=== PATIENT | female | born 1955 | race American Indian/Alaskan Native ===

== ENCOUNTER 2016-12-31 06:35 | Day surgery (SDC) | payer BC ==
--- NOTE | 2016-12-30 21:09 | History and Physical Report ---
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 Past History Past Medical History: diabetes, hypertension Medications and Allergies Allergies Allergy/AdvReac Type Severity Reaction Status Date / Time No Known Allergies Allergy Verified 02/15/16 19:28 Home Medications Medication Instructions Recorded Confirmed Last Taken Type Amlodipine Besylate [Amlodipine 1 tab PO DAILY 12/24/16 12/24/16 Unknown History Besylate] Atenolol/Chlorthalidone 1 tab PO DAILY 12/24/16 12/24/16 Unknown History [Atenolol-Chlorthalidone 50-25] Irbesartan [Irbesartan] 1 tab PO DAILY 12/24/16 12/24/16 Unknown History Metformin HCl [Metformin HCl] 1 tab PO DAILY 12/24/16 12/24/16 Unknown History Potassium Chloride [Klor-Con 10] 10 meq PO DAILY 12/24/16 12/24/16 Unknown History Pravastatin Sodium [Pravastatin 1 tab PO DAILY 12/24/16 12/24/16 Unknown History Sodium] Active Meds: Active Medications Famotidine (Pepcid) 20 mg PO PREOP NR Stop: 12/31/16 23:59 Cefazolin Sodium (Ancef/Sterile Water 2 Gm/20 Ml) 2 gm in 20 mls @ 80 mls/hr IV PREOP NR PRN Reason: Protocol Stop: 12/31/16 23:00 Sodium Chloride (Nacl 0.9% 1000 Ml) 1,000 mls @ 75 mls/hr IV DIRECT LIAS Midazolam HCl (Versed) 2 mg IV PREOP NR Stop: 12/31/16 23:59 Review of Systems All systems: negative Exam - Extremities Extremities: abnormal (Left thumb with a palpable nodule over the volar aspect of the MCP joint, from cystic with limited mobility. Active triggering of the flexor tendon at the A1 timothy, MCP joint left thumb. Fingertip sensations are intact. Tinnel sign, Phalen's test are negative.) Assessment and Plan - Patient Problems (1) Trigger thumb Status: Acute Qualifiers: Laterality: left Qualified Code(s): M65.312 - Trigger thumb, left thumb Plan to address problem: plan tenotomy, release of triggering (2) Ganglion, finger joint of left hand Status: Acute Plan to address problem: intraligamentous ganglion or aspect of the MCP joint left thumb, and excision with tenolysis
[~2016-12-31 06:35] MED LIST: ANCEF/STERILE WATER 2 GM/20 ML 2 GM/20 ML SYRINGE IV NR; NACL 0.9% 1000 ML 1,000 ML IV SCH; NEOSPORIN GU IR ONE; PEPCID PO NR; VERSED IV NR
[2016-12-31] MEDS ORDERED: NACL BACTERIOSTATIC INFILTRATI ONE (06:48)
--- NOTE | 2016-12-31 06:58 | Anesthesia Consultation ---
Anesthesia Consult and Med Hx - Airway Anesthetic Teeth Evaluation: Good ROM Head & Neck: Adequate Mental/Hyoid Distance: Adequate Mallampati Class: Class I Intubation Access Assessment: Good - Pulmonary Exam CTA: Yes - Cardiac Exam Cardiac Exam: RRR - Pre-Operative Health Status ASA Pre-Surgery Classification: ASA2 Proposed Anesthetic Plan: General - Pulmonary Hx Smoking: No SOB: No Hx Sleep Apnea: Yes - Cardiovascular System Hx Hypertension: Yes (>30 YRS) - Central Nervous System Hx Psychiatric Problems: No - Gastrointestinal Hx Ulcer: Yes (ASPIRIN CAUSED BLEEDING ULCER 2006) - Hematic Hx Anemia: Yes (2007 RESOLVED) - Other Systems Hx Alcohol Use: Yes (SOCIALLY) Hx Substance Use: No Hx Cancer: Yes - Additional Comments Anesthesia Medical History Comments: No previous anesthesia complications. Took amlodipine this morning, but not atenolol (last dose: 12/30 @ 09:30).
--- NOTE | 2016-12-31 07:01 | Anesthesia Day of Surgery ---
Anesthesia Day of Surgery - Day of Surgery Patient Examined: Yes Patient H&P Reviewed: Yes Patient is NPO: Yes Beta Blockers: No (Preop BW=291 sys, HR=65. No med required.)
[2016-12-31] MEDS ORDERED: DIPRIVAN 10 MG/ML IV ONE (07:38)
[2016-12-31] MEDS ORDERED: XYLOCAINE MPF 2% ONE (07:39)
[2016-12-31] MEDS ORDERED: NEOSPORIN GU IR ONE ×2 (07:55→09:10)
[2016-12-31] MEDS ORDERED: ZOFRAN IV PRN (07:57)
[2016-12-31] MEDS ORDERED: NORCO 5/325 PO PRN (07:57)
[2016-12-31] MEDS ORDERED: DILAUDID IV PRN (07:57)
[2016-12-31] MEDS ORDERED: SUBLIMAZE ONE (08:54)
[2016-12-31] MEDS ORDERED: MARCAINE 0.5% INFILTRATI ONE ×2 (09:09→09:15)
--- NOTE | 2016-12-31 09:19 | Discharge Summary ---
Providers - Providers Date of discharge: 12/31/16 Attending physician: ALEJANDRA BOND Primary care physician: ATIF MARSHALL Hospitalization Reason for admission: triger thumb/ ganglion left thumb Condition: Stable Procedures: Excision intra ligamentous ganglion left thumb tenolysis A1 timothy Hospital course: no complications Disposition: DISCHARGED TO HOME OR SELFCARE - Discharge Diagnoses (1) Trigger thumb Status: Acute Qualifiers: Laterality: left Qualified Code(s): M65.312 - Trigger thumb, left thumb (2) Ganglion, finger joint of left hand Status: Acute Core Measure Documentation - Palliative Care Palliative Care/ Comfort Measures: Not Applicable - Core Measures Any of the following diagnoses?: none Exam - Constitutional Vitals: Temp Pulse Resp BP Pulse Ox 97.9 F 63 20 130/73 98 12/31/16 06:55 12/31/16 06:55 12/31/16 06:55 12/31/16 06:55 12/31/16 06:55 Plan Activity: other Diet: regular Wound: per your surgeon's advice Durable Medical Equipment Needed Upon Discharge: other (Arm sling/ elevation) Follow up with: ATIF MARSHALL MD [Primary Care Provider] - 7 Days
[2016-12-31 11:32] VITALS: BP 124/77
--- NOTE | 2016-12-31 12:27 | Post Anesthesia Evaluation ---
- Post Anesthesia Evaluation Patient Participated: Yes Airway Patent: Yes Stable Respiratory Function: Yes Nausea/Vomiting: No Temp > 96.8F: Yes Pain Manageable: Yes Adequeate Hydration: Yes Anesthesia Complications: No Block Receding Appropriately: Not Applicable Patient on Ventilator: No
--- NOTE | 2016-12-31 14:01 | Operative Report ---
PREOPERATIVE DIAGNOSES: 1. Trigger thumb, left. 2. Interligamentous ganglion, A1 timothy, left thumb. POSTOPERATIVE DIAGNOSES: 1. Trigger thumb, left. 2. Interligamentous ganglion, A1 timothy, left thumb. OPERATIVE PROCEDURE: 1. Excision of interligamentous ganglion, left thumb. 2. Trigger finger release. SURGEON: George Kidd MD MACHINE BANDER AND CELLOPHANER HELPER: Gisela Bobby CSA. ANESTHESIA: General. BLOOD LOSS: Minimal. DESCRIPTION OF PROCEDURE: The patient was taken to surgery suite, satisfactory analgesia obtained with general anesthetics. The left upper limb prepped with ChloraPrep, satisfactorily draped. After confirming the correct patient, surgical site, and procedure, Esmarch was applied to the proximal to the wrist. Z-shaped incision was made over the volar aspect of the thumb at the MCP joint, which was deepened and the dorsal digital braches are identified and does retracted medially and laterally. A1 timothy along with the flexor sheath was identified. In length, interligamentous ganglion was identified over the volar aspect of the A1 timothy more towards the ulnar side. The interligamentous ganglion along with the base of the surrounding ligamentous excised. The A1 timothy was then incised longitudinally, thereby releasing the triggering. The hemostasis appeared satisfactory. Wound was closed with 4-0 nylon sutures, infiltrated with 2 mL of 0.5% Marcaine plain for postop pain control. With the sterile dressings in place, the patient was transferred to recovery room. She is to be discharged when discharge criteria are met. HOMEGOING INSTRUCTIONS: Elevation, localized packs, range of motion mcp/ip joints. Follow up in 7-10 days. JOB# [id number] JOHANNE/ASTON WRAY
== END 2016-12-31 11:15 | disposition home or self-care (01) ==
LOC: OR 06:35
PROVIDERS: ATTEND Orthopaedic Surgery
DX: M65.312 Trigger thumb, left thumb (principal); M67.442 Ganglion, left hand; E11.9 Type 2 diabetes mellitus without complications; I10 Essential (primary) hypertension
CPT/HCPCS: 26055; 26160; 82962; 88304; 93005; 93010; J0690; J2250; J2704; J3010; J7030

== ENCOUNTER 2017-09-07 07:53 | Day surgery (SDC) | payer BC ==
--- NOTE | 2017-09-07 08:42 | Anesthesia Consultation ---
Anesthesia Consult and Med Hx Date of service: 09/07/17 - Airway Anesthetic Teeth Evaluation: Good ROM Head & Neck: Adequate Mental/Hyoid Distance: Inadequate Intubation Access Assessment: Probably Good - Pulmonary Exam CTA: Yes - Cardiac Exam Cardiac Exam: RRR - Pre-Operative Health Status ASA Pre-Surgery Classification: ASA2 Proposed Anesthetic Plan: MAC - Pulmonary Hx Smoking: No SOB: No Hx Sleep Apnea: Yes (stopped using cpap) - Cardiovascular System Hx Hypertension: Yes (>30 YRS) - Central Nervous System Hx Psychiatric Problems: No - Gastrointestinal Hx Ulcer: Yes (ASPIRIN CAUSED BLEEDING ULCER 2006) - Endocrine Hx Non-Insulin Dependent Diabetes: Yes - Hematic Hx Anemia: Yes (2008 RESOLVED) - Other Systems Hx Alcohol Use: Yes (SOCIALLY) Hx Substance Use: No Hx Cancer: Yes (double mastectomy ) - Additional Comments Anesthesia Medical History Comments: NAC
--- NOTE | 2017-09-07 08:42 | Anesthesia Day of Surgery ---
Anesthesia Day of Surgery - Day of Surgery Patient Examined: Yes Patient H&P Reviewed: Yes Patient is NPO: Yes
[2017-09-07] MEDS ORDERED: NACL 0.9% 1000 ML 1,000 ML IV SCH (09:00)
[2017-09-07] MEDS ORDERED: DIPRIVAN 10 MG/ML IV ONE ×2 (09:03)
--- NOTE | 2017-09-07 10:12 | Short Stay Summary ---
Short Stay Documentation Date of service: 09/07/17 Narrative H&P: 61 year old presents for colonoscopy for colon screening. - History Principal diagnosis: colon screening H&P: obtained from office Past Medical History: cancer (Breast), diabetes, other (peptic ulcer) Past Surgical History: appendectomy, Other (breast surgery, tubal ligation) - Allergies and Medications Current Medications: Allergies No Known Allergies Allergy (Verified 02/15/16 19:28) Home Medications Medication Instructions Recorded Confirmed Last Taken Type Amlodipine Besylate [Amlodipine 1 tab PO DAILY 12/24/16 12/31/16 09/06/17 History Besylate] Atenolol/Chlorthalidone 1 tab PO DAILY 12/24/16 12/24/16 09/06/17 History [Atenolol-Chlorthalidone 50-25] Irbesartan [Irbesartan] 1 tab PO DAILY 12/24/16 12/24/16 09/06/17 History Metformin HCl [Metformin HCl] 1 tab PO DAILY 12/24/16 12/24/16 09/06/17 History Potassium Chloride [Klor-Con 10] 10 meq PO DAILY 12/24/16 12/24/16 09/06/17 History Pravastatin Sodium [Pravastatin 1 tab PO DAILY 12/24/16 12/24/16 09/06/17 History Sodium] Active Medications Sodium Chloride (Nacl 0.9% 1000 Ml) 1,000 mls @ 50 mls/hr IV DIRECT LISA Last Admin: 09/07/17 09:02 Dose: 50 mls/hr - Physical exam General appearance: no acute distress, well-nourished Integumentary: no rash HEENT: PERRLA, EOMI Lungs: Clear to auscultation Heart: Regular rate, Normal S1, Normal S2 Gastrointestinal: normal Neurological: Normal speech - Hospital course Hospital course: Uneventful colonoscopy - Disposition Condition at discharge: Good Disposition: DC-01 TO HOME OR SELFCARE - Discharge Diagnoses (1) Encounter for screening colonoscopy for [id number] patient Status: Acute (2) Internal hemorrhoids Status: Chronic (3) External hemorrhoids Status: Chronic Short Stay Discharge Plan Activity: other (no driving today) Diet: other (resume usual diet) Follow up with: ATIF MARSHALL MD [Primary Care Provider] - 7 Days
--- NOTE | 2017-09-07 10:42 | Operative Report ---
Operative Report Operative Report: Date of procedure: 09/07/2017 Preprocedure diagnosis: Average risk colon screening Post procedure diagnosis: Internal and external hemorrhoids Procedure name(s): Colonoscopy Surgeon: Sushil Santoro MD Anesthesia: Monitored anesthesia care EBL: None Procedure: The indications, techniques, potential complications and alternatives , had been discussed in full detail prior to the date of the exam, and once again on the day of the exam. Questions were encouraged and answered, and consent was thereby obtained. The patient was placed in the left lateral decubitus position, and was medicated by anesthesia services. See the anesthesia records for details. The anal sphincter was digitally dilated. External hemorrhoids were noted. The tip of an adult [employer] video colonoscope was inserted through the anal sphincter and into the rectal vault. It was then advanced proximally under continuous visualization of the lumen to the cecum without difficulty. The prep was adequate. Small amounts of scattered retained stool, particularly in the cecum and ascending colon, were able to be either suctioned away or displaced via lavage to permit visualization of underlying mucosa. No pathology was found in the cecum. The appendiceal orifice and ileocecal valve appeared normal. From the cecum, the instrument was slowly withdrawn with careful circumferential examination of the colonic mucosa. No pathology was found in the ascending colon, hepatic flexure, transverse colon, splenic flexure , descending colon, sigmoid colon or the rectum from the forward view. Retroflexion in the rectum revealed prominent internal hemorrhoids. The instrument was straightened and withdrawn. The procedure was very well tolerated. Postprocedure she was monitored in the recovery area of the GI lab to ensure stability prior to her release. See the outpatient record for details regarding instructions to patient, medications and plans for follow-up. Final diagnosis: 1. Internal and external hemorrhoids 2. Otherwise normal colonoscopy to the cecum Colon screening information: Previous colonoscopy was 10 years ago, next recommended screening colonoscopy will be in 10 years Sushil Santoro M.D. Dictated 09/07/2017 at 10:40 AM
[2017-09-07 11:07] VITALS: BP 122/63
== END 2017-09-07 07:54 | disposition home or self-care (01) ==
LOC: GIO 07:53
PROVIDERS: ATTEND Internal Medicine Gastroenterology
DX: Z12.11 Encounter for screening for malignant neoplasm of colon (principal); K64.8 Other hemorrhoids; K64.4 Residual hemorrhoidal skin tags; K27.9 Peptic ulcer, site unspecified, unspecified as acute or chronic, without hemorrhage or perforation; E11.9 Type 2 diabetes mellitus without complications; I10 Essential (primary) hypertension; Z79.84 Long term (current) use of oral hypoglycemic drugs; Z90.12 Acquired absence of left breast and nipple; Z98.890 Other specified postprocedural states; Z98.51 Tubal ligation status; Z90.49 Acquired absence of other specified parts of digestive tract; Z85.3 Personal history of malignant neoplasm of breast
CPT/HCPCS: 45378; 82962; J2704; J7030

== ENCOUNTER 2017-09-16 13:02 | Outpatient (CLI) | payer BC ==
[2017-09-16 13:27] LABS: Hematocrit 38.2 % (30.3-42.9); Hemoglobin 13.1 gm/dl (10.1-14.3); Mean Corpuscular HGB Conc 34 % (30-34); Mean Corpuscular Hemoglobin 28 pg (28-32); Mean Corpuscular Volume 82 fl (79-97); Platelet Count 310 K/mm3 (140-440); Red Blood Count 4.66 M/mm3 (3.65-5.03); Red Cell Distribution Width 14.5 % (13.2-15.2)
[2017-09-16 13:47] LABS: Alanine Aminotransferase 8 units/L (7-56); Albumin 4.4 g/dL (3.9-5); Albumin/Globulin Ratio 1.5 %; Alkaline Phosphatase 99 units/L (35-129); Anion Gap 19 mmol/L; BUN/Creatinine Ratio 22; Blood Urea Nitrogen 11 mg/dL (7-17); Calcium 9.5 mg/dL (8.4-10.2); Carbon Dioxide 25 mmol/L (22-30); Chloride 95.2 mmol/L (98-107); Glucose 139 mg/dL (65-100); Potassium 3.7 mmol/L (3.6-5.0); Sodium 135 mmol/L (137-145); Total Protein 7.3 g/dL (6.3-8.2)
== END 2017-09-16 13:03 | disposition home or self-care (01) ==
LOC: LAB 13:02
PROVIDERS: ATTEND Internal Medicine Hematology
DX: C50.412 Malignant neoplasm of upper-outer quadrant of left female breast (principal)
CPT/HCPCS: 36415; 80053; 85027; 86300

== ENCOUNTER 2017-12-11 09:48 | Outpatient (CLI) | payer BC ==
[2017-12-11 10:08] LABS: Eosinophils # (Auto) 0.2 K/mm3 (0.0-0.4); Eosinophils % (Auto) 3.6 % (0.0-4.3); Hematocrit 38.3 % (30.3-42.9); Hemoglobin 12.7 gm/dl (10.1-14.3); Lymphocytes # (Auto) 1.3 K/mm3 (1.2-5.4); Lymphocytes % (Auto) 26.9 % (13.4-35.0); Mean Corpuscular HGB Conc 33 % (30-34); Mean Corpuscular Hemoglobin 27 pg (28-32); Mean Corpuscular Volume 82 fl (79-97); Monocytes # (Auto) 0.2 K/mm3 (0.0-0.8); Monocytes % (Auto) 4.3 % (0.0-7.3); Platelet Count 282 K/mm3 (140-440); Red Blood Count 4.69 M/mm3 (3.65-5.03); Red Cell Distribution Width 15.1 % (13.2-15.2)
[2017-12-11 10:15] LABS: Hematocrit 38.7 % (30.3-42.9); Hemoglobin 12.6 gm/dl (10.1-14.3); Mean Corpuscular HGB Conc 32 % (30-34); Mean Corpuscular Hemoglobin 27 pg (28-32); Mean Corpuscular Volume 83 fl (79-97); Platelet Count 288 K/mm3 (140-440); Red Blood Count 4.69 M/mm3 (3.65-5.03); Red Cell Distribution Width 15.3 % (13.2-15.2)
[2017-12-11 10:20] LABS: Chol/HDL Ratio 2.5 %
[2017-12-11 10:34] LABS: Alanine Aminotransferase 7 units/L (7-56); Albumin 4.1 g/dL (3.9-5); BUN/Creatinine Ratio 20; Blood Urea Nitrogen 14 mg/dL (7-17); Calcium 9.3 mg/dL (8.4-10.2); Hemolysis Index 4
== END 2017-12-11 09:49 | disposition home or self-care (01) ==
LOC: LAB 09:48
PROVIDERS: ATTEND Internal Medicine Hematology & Oncology
DX: C50.412 Malignant neoplasm of upper-outer quadrant of left female breast (principal); E11.9 Type 2 diabetes mellitus without complications; E78.2 Mixed hyperlipidemia
CPT/HCPCS: 36415; 80053; 80061; 83036; 85025; 85027; 86300

== ENCOUNTER 2018-01-13 10:46 | Outpatient (CLI) | payer BC ==
--- NOTE | 2018-01-13 19:24 | Magnetic Resonance Report ---
FINAL REPORT EXAM: MR UE NONJOINT LT WO CON HISTORY: pain in left hand TECHNIQUE: Multiplanar MRI of the left hand. No contrast administered. PRIORS: None. FINDINGS: Diffuse degenerative changes noted in the thumb CMC, MCP and IP joints, index, long and ring finger MCP joints, the latter with some bony deformation and flattening of index-ring finger metacarpal heads and possible mild, reactive bone marrow edema. Similar, less severe degenerative change in the scaphoid-trapezium articulation. Probable small intracarpal cystic change in the distal scaphoid measuring approximately 4 mm. Remainder of bone marrow signal intensity within normal limits. No occult fracture or other osseous abnormality. Flexor and extensor tendons appear grossly intact. Surrounding soft tissues grossly unremarkable. IMPRESSION: 1. Diffuse degenerative changes scattered in the fingers as reported may represent osteoarthrosis, although inflammatory arthritide not completely excluded. Correlate clinically. 2. No other apparent internal derangement.
== END 2018-01-13 10:47 | disposition home or self-care (01) ==
LOC: MRI 10:46
PROVIDERS: ATTEND Orthopaedic Surgery
DX: M79.642 Pain in left hand (principal)

== ENCOUNTER 2018-01-28 09:49 | Day surgery (SDC) | payer BC ==
[~2018-01-28 09:49] MED LIST changes: -ANCEF/STERILE WATER 2 GM/20 ML 2 GM/20 ML SYRINGE IV NR; +LACTATED RINGERS 1,000 ML IV SCH; -NACL 0.9% 1000 ML 1,000 ML IV SCH; -NEOSPORIN GU IR ONE; -PEPCID PO NR; -VERSED IV NR
--- NOTE | 2018-01-28 11:49 | Anesthesia Day of Surgery ---
Anesthesia Day of Surgery - Day of Surgery Patient Examined: Yes Patient H&P Reviewed: Yes Patient is NPO: Yes
--- NOTE | 2018-01-28 11:49 | Anesthesia Consultation ---
Anesthesia Consult and Med Hx Date of service: 01/28/18 - Airway Anesthetic Teeth Evaluation: Good ROM Head & Neck: Adequate Mental/Hyoid Distance: Adequate Mallampati Class: Class I Intubation Access Assessment: Good - Pulmonary Exam CTA: Yes - Cardiac Exam Cardiac Exam: RRR - Pre-Operative Health Status ASA Pre-Surgery Classification: ASA2 Proposed Anesthetic Plan: General - Pulmonary Hx Smoking: No SOB: No Hx Sleep Apnea: Yes (DX SLEEP APNEA , NO CPAP USE.) - Cardiovascular System Hx Hypertension: Yes (X 30 YRS) - Central Nervous System Hx Psychiatric Problems: No - Gastrointestinal Hx Ulcer: Yes - Endocrine Hx Non-Insulin Dependent Diabetes: Yes - Hematic Hx Anemia: Yes (NOT RECENT) - Other Systems Hx Alcohol Use: Yes (SOCIALLY) Hx Substance Use: No Hx Cancer: Yes (double mastectomy '13)
[2018-01-28] MEDS ORDERED: NARCAN 0.4 MG/1 ML IV PRN (11:50)
[2018-01-28] MEDS ORDERED: TORADOL IV PRN (11:50)
[2018-01-28] MEDS ORDERED: DILAUDID IV PRN (11:50)
[2018-01-28] MEDS ORDERED: DEMEROL IV PRN (11:50)
[2018-01-28] MEDS ORDERED: VERSED IV NR (12:00)
[2018-01-28] MEDS ORDERED: ZOFRAN IV NR (12:00)
[2018-01-28] MEDS ORDERED: NACL 0.9% 1000 ML 1,000 ML IV SCH (12:00)
[2018-01-28] MEDS ORDERED: DIPRIVAN 10 MG/ML IV ONE ×2 (13:13→13:58)
[2018-01-28] MEDS ORDERED: ANCEF/STERILE WATER 2 GM/20 ML IV NR (14:00)
[2018-01-28] MEDS ORDERED: SUBLIMAZE ONE (14:04)
[2018-01-28] MEDS ORDERED: ZOFRAN ONE (14:15)
[2018-01-28] MEDS ORDERED: XYLOCAINE MPF 2% ONE (14:15)
[2018-01-28] MEDS ORDERED: MARCAINE 0.25% INFILTRATI ONE (14:30)
[2018-01-28] MEDS: DILAUDID IV PRN ×2 (15:15→15:25)
--- NOTE | 2018-01-28 15:17 | Procedure Note ---
Date of procedure: 01/28/18 Pre-op diagnosis: postoperative stiffness left thumb status post trigger finger release Post-op diagnosis: same Procedure: Lysis of adhesions left thumb Procedure The patient was brought to the OR personnel table in supine position following induction with leg anesthesia the patient's left upper extremity was prepped and draped in the usual sterile manner. A timeout procedure was done to identify the patient and the correct operative site next the arm was exsanguinated followed by inflation of the pneumatic tourniquet to 250 mmHg. A volar incision was made over the metacarpophalangeal joint this was taken down sharply through skin and subcutaneous incision was extended proximally along the radial border into the midportion of the first metacarpal using magnification attention was paid to the neurovascular structures care was taken to retract these structures out of the way next the flexor tendon was seen and appeared to be scarred down to the remnants of the A1 timothy using a combination of #15 knife blade and tenotomy scissors the flexor tendon was released and the finger are interphalangeal joint was then flexed to approximately 70 there did not appear to be any remaining scar tissue preventing flexion at the IP joint next the wound was copiously irrigated and was closed in a standard routine fashion. Dressings were applied the patient tolerated the procedure. There were no complications she was sent to postanesthesia recovery in a stable condition Anesthesia: MAC Surgeon: DESIREE BATRES Resource Program Teacher: STACY DAWSON Estimated blood loss: minimal Pathology: none Condition: stable Disposition: PACU
[2018-01-28 16:19] VITALS: BP 118/69
== END 2018-01-28 17:01 | disposition home or self-care (01) ==
LOC: OR 09:49
PROVIDERS: ATTEND Orthopaedic Surgery
DX: M25.642 Stiffness of left hand, not elsewhere classified (principal); I10 Essential (primary) hypertension; G47.30 Sleep apnea, unspecified; E11.9 Type 2 diabetes mellitus without complications; Z90.10 Acquired absence of unspecified breast and nipple; Z79.899 Other long term (current) drug therapy; Z85.3 Personal history of malignant neoplasm of breast
CPT/HCPCS: 26455; 26535; 36415; 82962; 84132; J0690; J1170; J2250; J2405; J2704; J3010; J7030

== ENCOUNTER 2018-04-14 08:36 | Day surgery (SDC) | payer BC ==
[~2018-04-14 08:36] MED LIST changes: -LACTATED RINGERS 1,000 ML IV SCH; +WATER FOR IRRIG STERILE IR ONE
[2018-04-14] MEDS ORDERED: NACL 0.9% 1000 ML 1,000 ML IV SCH (09:00)
[2018-04-14] MEDS ORDERED: DIPRIVAN 10 MG/ML IV ONE (09:53)
--- NOTE | 2018-04-14 10:15 | Short Stay Summary ---
Short Stay Documentation Date of service: 04/14/18 Narrative H&P: The patient presents for EGD and possible dilation for dysphagia - History Past Medical History: cancer (history of breast cancer), diabetes, hyperlipidemia Past Surgical History: appendectomy, mastectomy Social history: no significant social history, , lives with family, no smoking, no alcohol abuse - Allergies and Medications Current Medications: Allergies No Known Allergies Allergy (Verified 02/15/16 19:28) Home Medications Medication Instructions Recorded Confirmed Last Taken Type Amlodipine Besylate 10 mg PO DAILY 12/24/16 01/28/18 01/27/18 23:00 History Atenolol/Chlorthalidone 1 tab PO DAILY 12/24/16 01/28/18 01/27/18 23:00 History [Atenolol-Chlorthalidone 50-25] Irbesartan 300 mg PO DAILY 12/24/16 01/28/18 01/27/18 23:00 History Metformin HCl 500 mg PO TID 12/24/16 01/28/18 01/27/18 23:00 History Potassium Chloride [Klor-Con 10] 10 meq PO DAILY 12/24/16 01/28/18 01/27/18 23: 00 History Pravastatin Sodium 20 mg PO DAILY 12/24/16 01/28/18 01/27/18 23:00 History HYDROcodone/ACETAMINOPHEN 1 each PO Q4-6H #20 tablet 01/28/18 Unknown Rx [Hydrocodon-Acetaminophen 5-325] Active Medications Sodium Chloride (Nacl 0.9% 1000 Ml) 1,000 mls @ 50 mls/hr IV DIRECT LISA - Physical exam General appearance: no acute distress, well-nourished Integumentary: no rash, no growths, no abnormal pigmentation HEENT: Atraumatic, PERRLA, EOMI, Mucous membr. moist/pink Lungs: Clear to auscultation, Normal air movement Breasts: deferred Heart: Regular rate, Normal S1, Normal S2, No murmurs Gastrointestinal: normoactive bowel sounds, no tenderness, no distended, no masses, no guarding, no organomegaly Female Genitourinary: deferred Rectal Exam: deferred Extremities: no ischemia, pulses intact, pulses symmetrical, No edema, normal temperature, normal color, Full ROM Neurological: Normal gait, Normal speech, Strength at 5/5 X4 ext, Normal tone, Sensation intact, Cranial nerves 3-12 NL - Brief post op/procedure progress note Date of procedure: 04/14/18 Findings: see dictated report Estimated blood loss: none Pathology: none Condition: stable - Disposition Condition at discharge: Good Disposition: DC-01 TO HOME OR SELFCARE - Discharge Diagnoses (1) Dysphagia Status: Acute Short Stay Discharge Plan Activity: other (no driving for 24 hours) Weight Bearing Status: Full Weight Bearing Diet: advance as tolerated Follow up with: ATIF MARSHALL MD [Primary Care Provider] - 7 Days
--- NOTE | 2018-04-14 10:18 | Operative Report ---
Operative Report Operative Report: Date of procedure: 04/14/2018 Procedure: Esophagogastroduodenoscopy with balloon dilation of the distal esophagus. Preprocedure diagnosis: Dysphagia to solid foods Post procedure diagnosis: Peptic stricture. Small hiatus hernia. Endoscopist: Dr. Guardado Anesthesia: Monitored anesthesia care per anesthesia department Medications: Propofol per anesthesia. Estimated blood loss: 0 After careful discussion of the nature and purpose of the procedure as well as details the technique risks benefits and alternatives consent was obtained. The patient was placed in the left lateral decubitus position and medicated per anesthesia. The tip of the [employer] EQ 570 video scope was passed per orum under direct vision into the esophagus and advanced into the stomach and descending duodenum. The descending duodenum the duodenal bulb and pylorus were symmetrical and normal. The scope was withdrawn into the stomach and the stomach then gently insufflated with air. The antrum was normal. The stomach was further insufflated and the scope was then retroflexed and partially withdrawn. The cardia, fundus, and body of the stomach were within normal limits and easily distensible.The scope was then withdrawn in the forward position. The esophagogastric junction was at 38 cm. A small hiatus hernia was present. There was a mild peptic stricture present at the esophagogastric junction with a shelf-like appearance. There is no ulceration or mass effect. The esophageal body was otherwise normal throughout. Dilation was performed. An 18-20 mm [id number] balloon was utilized to dilate the stricture at the esophagogastric junction over approximately 90 seconds. Dilation was well tolerated. The area was inspected and no significant trauma was observed. The procedure was was well tolerated and the patient was observed in recovery. Impressions: Peptic stricture. Small hiatus hernia. Status post balloon dilation to 20 mm. Plan: Acid suppression therapy. Office follow-up in 6 months. Electronically signed: Bartolo Guardado MD
--- NOTE | 2018-04-14 10:19 | Anesthesia Consultation ---
Anesthesia Consult and Med Hx Date of service: 04/14/18 - Airway Anesthetic Teeth Evaluation: Good ROM Head & Neck: Adequate Mental/Hyoid Distance: Adequate Mallampati Class: Class II Intubation Access Assessment: Probably Good - Pulmonary Exam CTA: Yes - Cardiac Exam Cardiac Exam: RRR - Pre-Operative Health Status ASA Pre-Surgery Classification: ASA3 Proposed Anesthetic Plan: MAC - Pulmonary Hx Sleep Apnea: Yes (DX SLEEP APNEA , NO CPAP USE.) - Cardiovascular System Hx Hypertension: Yes (X 30 YRS) - Gastrointestinal Hx Ulcer: Yes - Endocrine Hx Non-Insulin Dependent Diabetes: Yes - Hematic Hx Anemia: Yes - Other Systems Hx Alcohol Use: Yes (SOCIALLY) Hx Cancer: Yes (double mastectomy '13, LEFT BREAST CA )
--- NOTE | 2018-04-14 10:19 | Anesthesia Day of Surgery ---
Anesthesia Day of Surgery - Day of Surgery Patient Examined: Yes Patient H&P Reviewed: Yes Patient is NPO: Yes
[2018-04-14 17:04] VITALS: BP 130/62
== END 2018-04-14 08:37 | disposition home or self-care (01) ==
LOC: EDBD → GIO 08:36
PROVIDERS: ATTEND Internal Medicine Gastroenterology
DX: K22.2 Esophageal obstruction (principal); K44.9 Diaphragmatic hernia without obstruction or gangrene; E11.9 Type 2 diabetes mellitus without complications; E78.5 Hyperlipidemia, unspecified; G47.30 Sleep apnea, unspecified; Z85.3 Personal history of malignant neoplasm of breast; Z98.890 Other specified postprocedural states; Z90.12 Acquired absence of left breast and nipple; I10 Essential (primary) hypertension
CPT/HCPCS: 43249; 82962; C1726; J2704; J7030

== ENCOUNTER 2018-06-24 06:51 | Outpatient (CLI) | payer BC ==
[2018-06-24 07:34] LABS: Basophils # (Auto) 0.1 K/mm3 (0.0-0.1); Basophils % (Auto) 1.1 % (0.0-1.8); Eosinophils # (Auto) 0.1 K/mm3 (0.0-0.4); Eosinophils % (Auto) 2.6 % (0.0-4.3); Hematocrit 39.6 % (30.3-42.9); Hemoglobin 13.3 gm/dl (10.1-14.3); Lymphocytes % (Auto) 35.3 % (13.4-35.0); Mean Corpuscular HGB Conc 34 % (30-34); Mean Corpuscular Hemoglobin 28 pg (28-32); Mean Corpuscular Volume 82 fl (79-97); Monocytes # (Auto) 0.3 K/mm3 (0.0-0.8); Platelet Count 349 K/mm3 (140-440); Red Blood Count 4.82 M/mm3 (3.65-5.03); Red Cell Distribution Width 14.6 % (13.2-15.2)
[2018-06-24 07:46] LABS: Alanine Aminotransferase 8 units/L (7-56); Albumin 4.8 g/dL (3.9-5); BUN/Creatinine Ratio 24; Blood Urea Nitrogen 12 mg/dL (7-17); Calcium 10.3 mg/dL (8.4-10.2); Chol/HDL Ratio 2.49 %; HDL Cholesterol 59 mg/dL (40-59); Hemolysis Index 3; LDL Cholesterol,Direct 82 mg/dL (50-130)
[2018-06-24 07:48] LABS: Creatinine,Urine 36.7 mg/dL (0.1-20.0)
[2018-06-24 07:57] LABS: Microalbumin/Creatinine Ratio 32.6 ug/mg
== END 2018-06-24 06:52 | disposition home or self-care (01) ==
LOC: LAB 06:51
PROVIDERS: ATTEND Internal Medicine
DX: E11.9 Type 2 diabetes mellitus without complications (principal); E78.2 Mixed hyperlipidemia; M19.90 Unspecified osteoarthritis, unspecified site; E78.00 Pure hypercholesterolemia, unspecified; I10 Essential (primary) hypertension; Z90.49 Acquired absence of other specified parts of digestive tract; Z90.12 Acquired absence of left breast and nipple
CPT/HCPCS: 36415; 80053; 80061; 82043; 83036; 85025

== ENCOUNTER 2018-12-09 06:33 | Outpatient (CLI) | payer BC ==
[2018-12-09 07:23] LABS: Alanine Aminotransferase 5 units/L (7-56); Albumin 4.2 g/dL (3.9-5); BUN/Creatinine Ratio 22; Blood Urea Nitrogen 11 mg/dL (7-17); Calcium 9.6 mg/dL (8.4-10.2); Hemolysis Index 0; LDL Cholesterol,Direct 95 mg/dL (50-130)
[2018-12-09 07:49] LABS: Chol/HDL Ratio 2.55 %; HDL Cholesterol 54 mg/dL (40-59)
== END 2018-12-09 06:34 | disposition home or self-care (01) ==
LOC: LAB 06:33
PROVIDERS: ATTEND Internal Medicine
DX: I10 Essential (primary) hypertension (principal); E11.9 Type 2 diabetes mellitus without complications; E78.2 Mixed hyperlipidemia; E78.00 Pure hypercholesterolemia, unspecified; M19.90 Unspecified osteoarthritis, unspecified site; Z86.2 Personal history of diseases of the blood and blood-forming organs and certain disorders involving the immune mechanism
CPT/HCPCS: 36415; 80053; 80061; 83036

== ENCOUNTER 2019-02-03 06:39 | Outpatient (CLI) | payer BC ==
[2019-02-03 07:08] LABS: BUN/Creatinine Ratio 20; Blood Urea Nitrogen 12 mg/dL (7-17); Calcium 9.2 mg/dL (8.4-10.2); Hemolysis Index 5
== END 2019-02-03 06:40 | disposition home or self-care (01) ==
LOC: LAB 06:39
PROVIDERS: ATTEND Internal Medicine
DX: E87.6 Hypokalemia (principal); E78.00 Pure hypercholesterolemia, unspecified; I10 Essential (primary) hypertension; E11.9 Type 2 diabetes mellitus without complications
CPT/HCPCS: 36415; 80048

== ENCOUNTER 2019-03-08 06:27 | Outpatient (CLI) | payer BC ==
[2019-03-08 07:21] LABS: Alanine Aminotransferase 12 units/L (7-56); Albumin 4.1 g/dL (3.9-5); BUN/Creatinine Ratio 20; Blood Urea Nitrogen 10 mg/dL (7-17); Calcium 9.5 mg/dL (8.4-10.2); Hemolysis Index 8; LDL Cholesterol,Direct 102 mg/dL (50-130)
[2019-03-08 07:35] LABS: Chol/HDL Ratio 2.72 %; HDL Cholesterol 61 mg/dL (40-59)
== END 2019-03-08 06:28 | disposition home or self-care (01) ==
LOC: LAB 06:27
PROVIDERS: ATTEND Internal Medicine Hematology & Oncology
DX: E11.9 Type 2 diabetes mellitus without complications (principal); I10 Essential (primary) hypertension; E78.2 Mixed hyperlipidemia; E78.00 Pure hypercholesterolemia, unspecified; M19.90 Unspecified osteoarthritis, unspecified site
CPT/HCPCS: 36415; 80053; 80061; 83036

== ENCOUNTER 2019-03-17 06:30 | Outpatient (CLI) | payer BC ==
[2019-03-17 07:22] LABS: Hematocrit 39.3 % (30.3-42.9); Hemoglobin 13.1 gm/dl (10.1-14.3); Mean Corpuscular HGB Conc 33 % (30-34); Mean Corpuscular Volume 83 fl (79-97); Platelet Count 287 K/mm3 (140-440); Red Blood Count 4.75 M/mm3 (3.65-5.03); Red Cell Distribution Width 15.4 % (13.2-15.2)
[2019-03-17 07:50] LABS: Alanine Aminotransferase 7 units/L (7-56); Albumin 4.2 g/dL (3.9-5); BUN/Creatinine Ratio 22; Blood Urea Nitrogen 11 mg/dL (7-17); Calcium 9.3 mg/dL (8.4-10.2); Hemolysis Index 5
== END 2019-03-17 06:31 | disposition home or self-care (01) ==
LOC: LAB 06:30
PROVIDERS: ATTEND Internal Medicine Hematology & Oncology
DX: C50.412 Malignant neoplasm of upper-outer quadrant of left female breast (principal); E78.00 Pure hypercholesterolemia, unspecified; I10 Essential (primary) hypertension; E11.9 Type 2 diabetes mellitus without complications
CPT/HCPCS: 36415; 80053; 85027; 86300

== ENCOUNTER 2019-06-14 06:32 | Outpatient (CLI) | payer BC ==
[2019-06-14 07:28] LABS: Alanine Aminotransferase 7 units/L (7-56); Albumin 4.2 g/dL (3.9-5); BUN/Creatinine Ratio 23; Blood Urea Nitrogen 14 mg/dL (7-17); Calcium 9.7 mg/dL (8.4-10.2); Chol/HDL Ratio 2.45 %; HDL Cholesterol 64 mg/dL (40-59); Hemolysis Index 11; LDL Cholesterol,Direct 100 mg/dL (50-130)
== END 2019-06-14 06:33 | disposition home or self-care (01) ==
LOC: LAB 06:32
PROVIDERS: ATTEND Internal Medicine
DX: E11.9 Type 2 diabetes mellitus without complications (principal); E78.2 Mixed hyperlipidemia; I10 Essential (primary) hypertension; E78.00 Pure hypercholesterolemia, unspecified
CPT/HCPCS: 36415; 80053; 80061; 83036

== ENCOUNTER 2019-08-25 10:52 | Outpatient (CLI) | payer BC ==
[2019-08-25 11:13] LABS: Hematocrit 39.2 % (30.3-42.9); Mean Corpuscular HGB Conc 33 % (30-34); Mean Corpuscular Volume 84 fl (79-97); Platelet Count 295 K/mm3 (140-440); Red Blood Count 4.69 M/mm3 (3.65-5.03); Red Cell Distribution Width 14.7 % (13.2-15.2)
[2019-08-25 11:36] LABS: Alanine Aminotransferase 6 units/L (7-56); Albumin 4.5 g/dL (3.9-5); BUN/Creatinine Ratio 20; Blood Urea Nitrogen 12 mg/dL (7-17); Hemolysis Index 0
== END 2019-08-25 10:53 | disposition home or self-care (01) ==
LOC: LAB 10:52
PROVIDERS: ATTEND Internal Medicine Hematology & Oncology
DX: C50.412 Malignant neoplasm of upper-outer quadrant of left female breast (principal)
CPT/HCPCS: 36415; 80053; 85027; 86300

== ENCOUNTER 2019-11-07 09:40 | Outpatient (CLI) | payer BC ==
[2019-11-07 10:21] LABS: Alanine Aminotransferase 7 units/L (7-56); Albumin 4.4 g/dL (3.9-5); BUN/Creatinine Ratio 30; Blood Urea Nitrogen 15 mg/dL (7-17); Calcium 10.2 mg/dL (8.4-10.2); Hemolysis Index 4
== END 2019-11-07 09:41 | disposition home or self-care (01) ==
LOC: LAB 09:40
PROVIDERS: ATTEND Internal Medicine
DX: I10 Essential (primary) hypertension (principal)
CPT/HCPCS: 36415; 80053; 82088

== ENCOUNTER 2019-11-14 09:27 | Outpatient (CLI) | payer BC ==
[2019-11-14 10:09] LABS: Alanine Aminotransferase 6 units/L (7-56); Albumin 4.3 g/dL (3.9-5); BUN/Creatinine Ratio 20; Blood Urea Nitrogen 14 mg/dL (7-17); Calcium 9.9 mg/dL (8.4-10.2); Hemolysis Index 3
== END 2019-11-14 09:28 | disposition home or self-care (01) ==
LOC: LAB 09:27
PROVIDERS: ATTEND Internal Medicine
DX: I10 Essential (primary) hypertension (principal)
CPT/HCPCS: 36415; 80053